=== PATIENT | male | born 2000 | race Caucasian/White ===

== ENCOUNTER 2023-12-26 01:29 | Emergency (ER) | payer OTHER, SELFPAY ==
--- NOTE | ~2023-12-26 | US_ITS ---
US scrotum doppler INDICATION: Left testicular pain. TECHNIQUE: Testicular sonogram utilizing grayscale and color Doppler FINDINGS: The testes are normal in size and appearance. No focal lesions are seen. The right testes measures 3.7 x 2.2 x 5.2 centimeters, and the left testis measures 5.3 x 2.4 x 3.8 cm. There is ander l vascular flow to both testes. The right and left epididymides appear normal. There is no varicocele or hydrocele. IMPRESSION: 1. NORMAL TESTICULAR ULTRASOUND. Reviewed, dictated and finalized at location B.
--- NOTE | ~2023-12-26 | CT_ITS ---
EXAMINATION: CT abdomen pelvis wo con DATE: 12/26/2023 02:31 INDICATION: Stone versus testicular torsion TECHNIQUE: Computed tomography (CT) of the abdomen and pelvis was performed without intravenous contr ast. The dose-length product was 219.15 mGy-cm. Automated exposure control and iterative reconstructi on technique were employed. COMPARISON: None. FINDINGS: Lung bases unremarkable. Heart size normal. No significant pleural or pericardial effusion. Nonobstructing right renal stones, largest measuring 4 mm. No ureteral stones or hydronephrosis. Gal lbladder is present. Possible distal left ureteral stone measuring 3 mm. Recommend confirmation with CT urogram. Nonobstructive bowel gas pattern. No significant vascular abnormality. The liver, spleen, pancreas, adrenal glands are unremarkable. No free air or free fluid. IMPRESSION: 1. Possible 3 mm distal left ureteral stone. Recommend confirmation with CT urogram. 2: Nonobstructing right nephrolithiasis. Reviewed, dictated and finalized at location B. IMPRESSION: 1. Possible 3 mm distal left ureteral stone. Recommend confirmation with CT uro gram. 2: Nonobstructing right nephrolithiasis.
--- NOTE | ~2023-12-26 | XR_ITS ---
XR abdomen/kub 1V 12/26/2023 05:44 INDICATION: Evaluate for stone movement TECHNIQUE: KUB COMPARISON: None FINDINGS: Bowel gas pattern is normal. There is no evidence of free air, mass, organomegaly, ascites or obstruction. No abnormal calculi are seen. Kidneys are obscured by bowel content. The bones appe ar intact. IMPRESSION: 1: No acute abdominal abnormality identified. Reviewed, dictated and finalized at location B.
[2023-12-26 01:38] VITALS: BP 145/83; PULSE 82; RESP 15; TEMP 36.9; O2SAT 98
--- NOTE | 2023-12-26 01:58 | ED.MALEGU ---
HPI - Male Genitourinary General Chief complaint: Urogenital-Male Stated complaint: left flank pain Time Seen by Provider: 12/26/23 01:55 Source: patient Mode of arrival: ambulatory Limitations: no limitations History of Present Illness HPI Narrative: Patient awoke with acute onset sharp left flank and left groin, paricularly testicle pain at 0100. This has never happened before. No history of UTIs or stones. No dysuria, hematuria, urgency, frequency, or fever. No penile discharge. Related Data Allergies Allergy/AdvReac Type Severity Reaction Status Date / Time No Known Allergies Allergy Verified 12/26/23 01:41 Exam Narrative: GENERAL: Well-appearing, well-nourished, in mild acute distress. HEAD: Normocephalic, atraumatic. EYES: Non injected, non icteric ENT: Nares clear, no rhinorrhea or epistaxis. NECK: Supple. CHEST: Speaking in full sentences. No respiratory distress. HEART: Regular rate and rhythm. . ABDOMEN: Soft, nondistended. : Normal external male genitalia though high riding left testicle; normal (not horizontal) lie. Equivocal cremasteric reflex. No penile discharge. No scrotal edema. No masses. No significant worsening or relief of pain with elevation of left testis. No CVA tenderness bilaterally. EXTREMITIES: Normal range of motion. No edema. SKIN: Warm, dry, no rash. NEURO: No focal deficits. Alert and oriented x3. PSYCH: Normal mood and affect. Course Vital Signs Vital signs: Vital Signs Temperature 98.4 F 12/26/23 01:38 Pulse Rate 82 12/26/23 01:38 Respiratory Rate 15 12/26/23 01:38 Blood Pressure 145/83 H 12/26/23 01:38 Pulse Oximetry 98 12/26/23 01:38 Oxygen Delivery Room Air 12/26/23 01:38 Temperature 98.4 F 12/26/23 01:38 Pulse Rate 66 12/26/23 05:10 Respiratory Rate 15 12/26/23 05:10 Blood Pressure 118/63 12/26/23 05:10 Pulse Oximetry 96 12/26/23 05:10 Oxygen Delivery Room Air 12/26/23 01:38 MDM - Male Genitourinary MDM Narrative Medical decision making narrative: Patient presents with sharp left flank and groin/left testicle pain. In the ED he is afebrile with acceptable VS. I strongly suspect a kidney stone based on presentation and that testicle pain is referred pain. However, patient does have a slightly abnormal exam in that the testicle is high riding. Out of abundance of precaution especially given age, acuity of syptoms, and potential morbidity/loss of function if missed. will evaluate for torson as well. Evidence of stone on CT scan, reportedly with obstruction. Patient requires several doses of pain medication. US without evidence of torsion and patient's pain is better controlled after pain relief, IV fluids, and tamsulosin. KUB obtained. Patient discussed with inspection and testing supervisor urologist who concurs with outpatient therapy, return precautions, and follow up with urology. Patient provided strainer and prescriptions for medications as well as urology follow up contact information. Discharged in stable condition. . Differential Diagnosis Differential diagnosis: Likely urinary tract infection (pyelonephritis), epididymitis, inguinal hernia and other (kidney stone, testicular torsion) Lab Data Attestation: I reviewed the patient's lab results. 12/26/23 02:19 12/26/23 02:19 Labs: Lab Results 12/26/23 12/26/23 Range/Units 02:19 02:25 WBC 8.0 (4.5-10.0) K/mm3 RBC 4.97 (4.6-6.20) M/mm3 Hgb 15.4 (14.0-18.0) g/dL Hct 45.9 (42.0-52.0) % MCV 92.4 (80-100) fl MCH 31.0 (26-34) pg MCHC 33.6 (32-36) g/dl RDW 12.0 (11.5-14.5) % Plt Count 166 (150-375) k/mm3 MPV 11.0 H (7.4-10.4) fl Immature Gran % (Auto) 0.3 (0-0.5) % Neut % (Auto) 61.0 (45.5-73.1) % Lymph % (Auto) 29.5 (18.3-44.2) % Pine % (Auto) 6.8 (2.6-8.5) % Eos % (Auto) 1.5 (0-4.4) % Baso % (Auto) 0.9 (0.2-1.2) % Lymph # (Auto) 2.36 (0.9-3.2) K/mm3 Pine # (Auto) 0.5 (0.1-0.6) K/mm3
[2023-12-26 02:26] LABS: Basophils Absolute Auto 0.1 K/mm3 (0.0-0.1); Basophils Percent Auto 0.9 % (0.2-1.2); Eosinophils Absolute Auto 0.1 K/mm3 (0-0.3); Eosinophils Percent Auto 1.5 % (0-4.4); Hematocrit 45.9 % (42.0-52.0); Hemoglobin 15.4 g/dL (14.0-18.0); Immature Granulocyte Absolute 0.02 K/mm3 (0.00-0.031); Immature Granulocyte Percent A 0.3 % (0-0.5); Lymphocytes Absolute Auto 2.36 K/mm3 (0.9-3.2); Lymphocytes Percent Auto 29.5 % (18.3-44.2); Mean Corpuscular HGB Conc 33.6 g/dl (32-36); Mean Corpuscular Volume 92.4 fl (80-100); Monocytes Absolute Auto 0.5 K/mm3 (0.1-0.6); Monocytes Percent Auto 6.8 % (2.6-8.5); Neutrophils Absolute Auto 4.9 K/mm3 (1.3-6.7); Platelet Count Result 166 k/mm3 (150-375); Red Blood Count 4.97 M/mm3 (4.6-6.20)
[2023-12-26 02:37] LABS: Appearance Urine Clear (Clear); Bacteria Urine None Seen /hpf; Bilirubin Urine Negative (Negative); Blood Urine 2+ (Negative); Color Urine Yellow (Yellow); Glucose Urine UA Negative (Negative); Ketones Urine Trace mg/dL (Negative); Leukocyte Esterase Ur Negative LEU/UL (Negative); Nitrate Urine Negative (Negative); Non Pathogenic Casts 0-2; Protein Urine Negative (Negative); RBC Urine 51-100 /hpf (0-2); Specific Grav Ur 1.023 (1.001-1.035); Squamous Epithelial Cell Urine None Seen /hpf (Few); Urobilinogen Urine 0.2 mg/dL (<2.0); WBC Urine 0-5 /hpf (0-3); pH Urine 5.5 (5.0-9.0)
[2023-12-26 02:38] LABS: Add Urine Microscopic? YES
[2023-12-26 02:38] LABS: Alanine Aminotransferase 17 U/L (6-50); Albumin Level 4.6 g/dL (3.5-5.1); Alkaline Phosphatase 61 U/L (38-126); Anion Gap 14 mmol/L (4-12); Aspartate Amino Transferase 27 U/L (17-59); Bilirubin,Total 0.8 mg/dL (0.2-1.3); Blood Urea Nitrogen 23 mg/dL (9-20); Calcium 9.3 mg/dL (8.4-10.2); Carbon Dioxide 23 mmol/L (22-30); Chloride 102 mmol/L (98-107); Estimated CRCL calculation 92 ml/min; Estimated Glomerular Filt Rate > 60; Glucose 91 mg/dL (65-110); Lipase 40 U/L (23-300); Potassium 3.8 mmol/L (3.4-5.0); Sodium 139 mmol/L (137-145)
[2023-12-26 03:20] VITALS: BP 138/86; PULSE 83; RESP 15; O2SAT 98
[2023-12-26] MEDS: MORPHINE SULFATE (*CRX) 4 MG/ML INJ IV PUSH (03:23)
[2023-12-26] MEDS: SODIUM CHLORIDE 0.9% IV 1,000 ML 999 ML IV CONT (03:29)
[2023-12-26 03:37] LABS: Trichomonas Vag PCR NOT DETECTED (NOT DETECTE)
[2023-12-26] MEDS: HYDROmorphone HCL INJ (*CRX) 1 MG/ML SYR 0.5 MG IV PUSH (03:51)
[2023-12-26 04:01] LABS: Chlamydia trachomatis NOT DETECTED (NOT DETECTE); Neisseria gonorrhoeae PCR NOT DETECTED (NOT DETECTE)
[2023-12-26] MEDS: KETOROLAC 15 MG/ML VIAL (*BKC) IV PUSH (04:13)
[2023-12-26] MEDS: TAMSULOSIN HCL 0.4 MG CAPSULE PO (04:13)
[2023-12-26 05:10] VITALS: BP 118/63; PULSE 66; RESP 15; O2SAT 96
== END 2023-12-26 05:50 | disposition home or self-care (01) ==
PROVIDERS: Physician Assistant; Emergency Provider Student in an Organized Health Care Education/Training Program
DX: N20.1 Calculus of ureter (principal); R31.29 Other microscopic hematuria; N50.812 Left testicular pain
CPT/HCPCS: 36415; 74018; 74176; 76870; 80053; 81001; 83690; 85025; 87491; 87591; 87661; 93976; 96361; 96374; 96375; 99284; A9270; J1170; J1885; J2270; J7030